=== PATIENT | female | born 1970 | race African-American/Black ===

== ENCOUNTER 2020-10-06 08:27 | Emergency (ER) | payer OTHER, SELFPAY ==
--- NOTE | ~2020-10-06 | XR_ITS ---
EXAMINATION: XR chest 1V portable DATE: 10/06/2020 08:58 INDICATION: Chest pain. TECHNIQUE: A single frontal view of the chest was obtained. COMPARISON: None. FINDINGS: A calcified right lung nodule and calcified mediastinal lymph nodes are consistent with old granulomatous disease. No pleural effusion or pneumothorax. The heart size is normal. Surgical clips in the right upper quadrant are likely from cholecystectomy. IMPRESSION: 1. No acute cardiopulmonary disease. Reviewed, dictated and finalized at location A. LOADER
[2020-10-06 08:40] VITALS: BP 140/99; PULSE 90; RESP 18; TEMP 36.6; O2SAT 100
--- NOTE | 2020-10-06 08:41 | ECG_ITS ---
Measurements Intervals Lenore Rate: 83 P: 85 MO: 151 QRS: 77 QRSD: 76 T: 77 QT: 343 QTc: 405 Interpretive Statements SINUS RHYTHM POSSIBLE RIGHT ATRIAL ENLARGEMENT DELAYED PRECORDIAL R/S TRANSITION VOLTAGE CRITERIA FOR LVH BORDERLINE ECG Electronically Signed On 10-06-2020 11:54:48 CUSTOMS ENTRY WRITER by Will Noble D.O.
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
== END 2020-10-06 09:49 | disposition home or self-care (01) ==
PROVIDERS: Emergency Provider Family Medicine; PCP Internal Medicine
DX: R07.89 Other chest pain (principal); L84 Corns and callosities; R94.31 Abnormal electrocardiogram [ECG] [EKG]
CPT/HCPCS: 71045; 93005; 99283

== ENCOUNTER 2020-10-11 10:31 | Outpatient (CLI) | payer OTHER, SELFPAY ==
--- NOTE | 2020-10-11 12:00 | NEURO_ITS ---
Impression: # Complains of numbness and generalized weakness. # Normal nerve conduction study. # Normal needle/EMG exam without evidence of any neurogenic changes or myotonia. # Clinical correlation recommended. Nerve Conduction Studies Anti Sensory Summary Table Stim Site NR Peak (ms) P-T Amp (?V) Site1 Site2 Delta-P (ms) Dist (cm) Dwight (m/s) Left Median Anti Sensory (2-3nd Digit) Wrist 3.5 63.3 Wrist 2-3nd Digit 3.5 14.0 40 Wrist 3.7 65.1 Wrist 2-3nd Digit 3.5 14.0 40 Right Median Anti Sensory (2-3nd Digit) Wrist 3.0 46.4 Wrist 2-3nd Digit 3.0 14.0 47 Wrist 3.3 69.6 Wrist 2-3nd Digit 3.0 14.0 47 Left Radial Anti Sensory (Base 1st Digit) Wrist 2.5 11.6 Wrist Base 1st Digit 2.5 0.0 Right Radial Anti Sensory (Base 1st Digit) Wrist 2.4 52.8 Wrist Base 1st Digit 2.4 0.0 Left Sup Fibular Anti Sensory (Ant Lat Mall) 14 cm 3.3 10.2 14 cm Ant Lat Mall 3.3 16.0 48 Right Sup Fibular Anti Sensory (Ant Lat Mall) 14 cm 2.8 18.2 14 cm Ant Lat Mall 2.8 16.0 57 Left Sural Anti Sensory (Lat Mall) Calf 3.1 42.3 Calf Lat Mall 3.1 16.0 52 Right Sural Anti Sensory (Lat Mall) Calf 3.7 28.6 Calf Lat Mall 3.7 16.0 43 Left Ulnar Anti Sensory (5th Digit) Wrist 3.0 66.3 Wrist 5th Digit 3.0 14.0 47 Right Ulnar Anti Sensory (5th Digit) Wrist 2.7 59.0 Wrist 5th Digit 2.7 14.0 52 Motor Summary Table Stim Site NR Onset (ms) O-P Amp (mV) Site1 Site2 Delta-0 (ms) Dist (cm) Dwight (m/s) Left Median Motor (Abd Poll Brev) Wrist 3.0 10.7 Elbow Wrist 4.8 27.0 56 Elbow 7.8 11.0 Right Median Motor (Abd Poll Brev) Wrist 2.6 12.5 Elbow Wrist 4.7 27.0 57 Elbow 7.3 6.4 Left Peroneal Motor (Vastus Med) Ankle 4.1 4.9 Popit Ankle 8.1 36.0 44 Popit 12.2 4.2 Right Peroneal Motor (Vastus Med) Ankle 4.4 2.6 Popit Ankle 6.5 32.0 49 Popit 10.9 2.6 Left Tibial Motor (Abd Medina Brev) Ankle 4.8 7.1 Knee Ankle 8.0 40.0 50 Knee 12.8 5.0 Right Tibial Motor (Abd Medina Brev) Ankle 4.4 6.7 Knee Ankle 7.6 37.0 49 Knee 12.0 5.9 Left Ulnar Motor (Abd Dig Minimi) Wrist 2.7 6.6 A Elbow Wrist 5.0 28.0 56 A Elbow 7.7 7.0 Right Ulnar Motor (Abd Dig Minimi) Wrist 3.2 6.9 A Elbow Wrist 4.6 27.0 59 A Elbow 7.8 6.6 F Wave Studies NR F-Lat (ms) L-R F-Lat (ms) Left Median (Mrkrs) (Abd Poll Brev) 27.45 0.23 Right Median (Mrkrs) (Abd Poll Brev) 27.68 0.23 Left Peroneal (Mrkrs) (EDB) 46.28 0.23 Right Peroneal (Mrkrs) (EDB) 46.05 0.23 Left Tibial (Mrkrs) (Abd Hallucis) 46.57 0.00 Right Tibial (Mrkrs) (Abd Hallucis) 46.57 0.00 Left Ulnar (Mrkrs) (Abd Dig Min) 26.09 0.76 Right Ulnar (Mrkrs) (Abd Dig Min) 26.85 0.76 EMG Side Muscle Nerve Root Ins Act Fibs Amp Dur Recrt Comment Right 1stDorInt Ulnar C8-T1 Nml Nml Nml Nml Nml Right Ext Indicis Radial (Post Int) C7-8 Nml Nml Nml Nml Nml Right Ext Digitorum Radial (Post Int) C7-8 Nml Nml Nml Nml Nml Right BrachioRad Radial C5-6 Nml Nml Nml Nml Nml Right PronatorTeres Median C6-7 Nml Nml Nml Nml Nml Right Abd Poll Brev Median C8-T1 Nml Nml Nml Nml Nml Right AntTibialis Dp Br Fibular L4-5 Nml Nml Nml Nml Nml Right Gastro
== END 2020-10-11 10:32 | disposition home or self-care (01) ==
PROVIDERS: PCP Internal Medicine; Visit Provider Psychiatry & Neurology Neurology
DX: R20.2 Paresthesia of skin (principal)
CPT/HCPCS: 95886; 95913

== ENCOUNTER 2020-11-16 16:27 | Emergency (ER) | payer OTHER, SELFPAY ==
[2020-11-16 17:00] VITALS: BP 108/92; PULSE 108; RESP 18; TEMP 36.6; O2SAT 99
[2020-11-16 19:15] VITALS: BP 111/78; PULSE 98; RESP 16
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
--- NOTE | 2020-11-16 19:35 | PC.NURSE ---
pt wishes to leave and not wait for blood work. pt states she will come back tomorrow. pt states she is going to go to [facility] and ask for something otc.
--- NOTE | 2020-11-16 19:35 | PC.NURSE ---
After ER Physician felicity pt reports she wants to leave. AMA form signed by pt with charge nurse Marli.
== END 2020-11-16 19:32 | disposition left against medical advice (07) ==
PROVIDERS: Emergency Provider Emergency Medicine; PCP Internal Medicine
DX: R10.11 Right upper quadrant pain (principal); Z85.038 Personal history of other malignant neoplasm of large intestine
CPT/HCPCS: 99281

== ENCOUNTER 2023-11-16 12:18 | Outpatient (CLI) | payer OTHER, SELFPAY ==
[2023-11-16 13:24] LABS: CRP < 0.5 mg/dL (<1.0)
[2023-11-16 14:39] LABS: Free T4 Free Thyroxine 0.82 ng/mL (0.78-2.19)
[2023-11-18 06:28] LABS: Triiodothyronine T3 Free 2.8 pg/mL (2.3-4.2)
[2023-11-19 16:19] LABS: Red Blood Cell Folate 397 ng/mL RBC (>280)
[2023-11-20 17:44] LABS: Thyroid Peroxidase Antibodies 4 IU/mL (<9)
[2023-11-21 20:49] LABS: Anti Cardio Antibody IgM <2.0 MPL-U/mL; Anti Cardiolipin Antibody IgA <2.0 APL-U/mL; Anti Cardiolipin Antibody IgG <2.0 GPL-U/mL
[2023-11-26 00:23] LABS: RF IgA <5 U
== END 2023-11-16 12:19 | disposition home or self-care (01) ==
LOC: ANHLAB 12:20
PROVIDERS: Visit Provider Psychiatry & Neurology Neurology
DX: M54.50 Low back pain, unspecified (principal); M13.0 Polyarthritis, unspecified
CPT/HCPCS: 36415; 82607; 82747; 84439; 84443; 84481; 86038; 86140

== ENCOUNTER 2025-01-19 11:28 | Outpatient (CLI) | payer OTHER, SELFPAY ==
--- NOTE | ~2025-01-19 | XR_ITS ---
EXAM/ PROCEDURE: XR lumbar spine min 4V - 01/19/2025 11:45 CDT HISTORY: 54 years old Female with M54.5 - Low back pain WORSENING X 6 MONTHS COMPARISON: None available TECHNIQUE: 5 view(s) FINDINGS/ IMPRESSION: There are no fractures or dislocations.Multilevel degenerative changes are seen. Atherosclerotic ulce rations are seen. Cholecystectomy clips are seen. Reviewed, dictated and finalized at location A.
== END 2025-01-19 11:29 | disposition home or self-care (01) ==
PROVIDERS: Visit Provider Psychiatry & Neurology Neurology
DX: G62.9 Polyneuropathy, unspecified (principal); M54.50 Low back pain, unspecified; Z90.49 Acquired absence of other specified parts of digestive tract; M89.9 Disorder of bone, unspecified
CPT/HCPCS: 72110

== ENCOUNTER 2025-04-27 09:29 | Outpatient (CLI) | payer OTHER, SELFPAY ==
--- OUTSIDE RECORDS SUMMARY | 2025-04-27 09:59 | XMS_ITS | Clinical Summary ---
Author Organization [facility] Address [address] [place] [address] Care Team Providers Care Nickel Operator Name Role Phone Piotr Gonzalez MD Unavailable [phone] Glenn Grayson MD Unavailable [phone] Ami Yost NP Primary Care Provider + Allergies Active Allergy Reactions Criticality Noted Date Comments Penicillins Unknown 07/23/2020 Medications albuterol HFA (PROVENTIL HFA,VENTOLIN HFA,PROAIR HFA) 90 mcg/actuation inhaler 1 Active ARIPiprazole (ABILIFY) 2 mg tablet 1 Active busPIRone (BUSPAR) 10 mg tablet TAKE 1 TABLET BY MOUTH FOUR TIMES A DAY 1 Active citalopram (CeleXA) 10 mg tablet Take 10 mg by mouth daily 1 Active ergocalciferol (VITAMIN D) 50,000 unit capsule TAKE 1 CAPSULE BY MOUTH ONCE PER WEEK DIRECTED FOR 28 DAYS 1 Active HYDROcodone-kamlesh taminophen (NORCO) 5-325 mg per tablet 1 Active ipratropium-alb uteroL (DUO-NEB) 0.5-2.5 mg/3 mL nebulizer solution INHALE 1 VIAL PER NEBULIZER 4 TIMES A DAY FOR 30 DAYS. 1 Active ibuprofen (ADVIL,MOTRIN) 600 mg tablet Take 600 mg by mouth 3 (three) times a day 1 Active OLANZapine (ZyPREXA) 10 mg tablet TAKE 1 TABLET BY MOUTH EVERYDAY AT BEDTIME 1 Active omeprazole (PriLOSEC) 20 mg capsule Take 20 mg by mouth 2 (two) times a day 1 Active Active Problems No known active problems Surgical History Surgery Date Site/Laterality Comments SECTION CHOLECYSTECTOMY Medical History Medical History Date Comments Gout Cancer (HCC) Peptic ulceration Family History Medical History Relation Name Comments Cancer Father Heart disease Mother Relation Name Status Comments Father Mother Social History Tobacco Use Types Packs/Day Years Used Date Smoking Tobacco: Every Day Personal Safety Answer Date Recorded Getting School Help Needed Not on file 08/20 Comments Unknown Sex and Gender Information Value Date Recorded Sex Assigned at Not on file Legal Sex Female 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 [employer] Gender Identity Not on file Sexual Orientation Not on file Occupation Industry Job Start Date Job End Date DISABLED Not on file Not on file Not on file Obstetrics History Last Filed Vital Signs Vital Sign Reading Time Taken Comments Blood Pressure 123/88 08/21/2016 10:42 AM PROGRAM COORDINATOR FOR [employer] Pulse 90 11/23/2020 1:39 PM CDT Temperature 36.6 C (97.8 F) 08/21/2016 10:42 AM PROGRAM COORDINATOR FOR [employer] Respiratory Rate - - Oxygen Saturation 98% 08/21/2016 10:42 AM PROGRAM COORDINATOR FOR [employer] Inhaled Oxygen Concentration - - Weight 36.3 kg (80 lb) 12/07/2020 10:55 AM CDT Height 160 cm (5' 3) 12/07/2020 10:55 AM CDT Body Mass Index 14.17 12/07/2020 10:55 AM CDT Plan of Treatment Health Maintenance Due Date Last Done Comments Breast Cancer Screening-Mammogram 1969 Cervical Cancer Screening 1969 Colon Cancer Screening-Colonoscopy 1969 Depression Screening 1969 Hepatitis C Screening 1969 DTaP/Tdap/Td Vaccine (1 - Tdap) 1980 Hepatitis B Screening 1987 Regular Well Visit/Exam 18-64 1987 Pneumococcal vaccine <65 (1 of 2 - PCV) 1988 Zoster Vaccine (1 of 2) 2019 Influenza Vaccine (#1) 2025 11/23/2015 Insurance Care Teams Nickel Operator Relationship Specialty Start Date End Date Ami Yost NP [address] [place] [id number] PCP - General Family Practice 05/08/22 Piotr Gonzalez MD 10/29/20 Glenn Grayson MD [address] [place] [id number] Referring Physician Neurology 12/05/20
--- OUTSIDE RECORDS SUMMARY | 2025-04-27 09:59 | XMS_ITS | Encounter Summary ---
Author Organization [facility] Address [address] [place] [address] Care Team Providers Care Manager Vehicle Name Role Phone Piotr Gonzalez MD Unavailable [phone] Piotr Gonzalez MD Primary Care Provider [phone] Glenn Grayson MD Unavailable [phone] Ami Yost NP Primary Care Provider + Encounter Details Date Type Department Care Team (Late st Contact Info) Description 08/08/2021 Telephone [facility] [address] [facility] [address] [place] [address] Sherif Lo MD PhD [address] [facility] [address] [facility] [address] [place] [address] Social History Tobacco Use Types Packs/Day Years Used Date Smoking Tobacco: Every Day Comments Unknown Sex and Gender Information Value Date Recorded Sex Assigned at Not on file 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 Gender Identity Not on file Sexual Orientation Not on file Occupation Industry Job Start Date Job End Date DISABLED Not on file Not on file Not on file documented as of this encounter Plan of Treatment Not on file documented as of this encounter Visit Diagnoses Not on filedocumented in this encounter Care Teams Manager Vehicle Relationship Specialty Start Date End Date Piotr Gonzalez MD PCP - General 11/12/20 05/07/22 Ami Yost NP [address] [place] [address] [id number] PCP - General Family Practice 05/08/22 Piotr Gonzalez MD 10/29/20 Glenn Grayson MD [address] [place] [address] [id number] Referring Physician Neurology 12/05/20 documented as of this encounter
--- OUTSIDE RECORDS SUMMARY | 2025-04-27 09:59 | XMS_ITS | Clinical Summary ---
Author Organization [facility] Address [address] [facility] [place] [address] Care Team Providers Care Exercise Teacher Name Role Phone Olinda Urrutia DO Primary Care Provi nubia Source Comments [facility],non-owned Affiliates and Associated Physician Practices is amultiple site organization consisting of ambulatory clinics and hospital sitesin [place], [place], [place] and [place]. This disclosure is being madepursuant to the Care Everywhere program and may not contain all information available regarding this patient. Last updated 18.[facility] Allergies Active Allergy Reactions Criticality Noted Date Comments Penicillins Unknown 07/23/2020 Medications * Be aware that medications may not be up to date on this document. Alwaysverify current medications with the patient. albuterol HFA (PROVENTIL;BERNICE MELODY;PROAIR) 108 (90 Base) MCG/ACT inhaler Inhale 2 puffs by mouth every 6 hours as needed Active HYDROcodone-acet aminophen (NORCO) 5-325 MG tablet Take 1 tablet by mouth every 6 hours as needed for Pain Active busPIRone (BUSPAR) 10 MG tablet Take 10 mg by mouth 3 times daily Active Active Problems Problem Noted Date Diagnosed Date Paranoid delusion 07/23/2020 Schizophrenia COPD (chronic obstructive pulmonary disease) Social History Tobacco Use Types Packs/Day Years Used Date Smoking Tobacco: Never Assessed Comments Unknown Sex and Gender Information Value Date Recorded Sex Assigned at Not on file Legal Sex Female 6:05 AM MODELER Gender Identity Not on file Sexual Orientation Not on file Last Filed Vital Signs Vital Sign Reading Time Taken Comments Blood Pressure 138/90 07/24/2020 3:15 AM MODELER Pulse 82 07/24/2020 3:15 AM MODELER Temperature 36.7 C (98 F) 07/24/2020 3:15 AM MODELER Respiratory Rate 20 07/23/2020 3:38 PM MODELER Oxygen Saturation 98% 07/24/2020 3:15 AM MODELER Inhaled Oxygen Concentration - - Weight 43.1 kg (95 lb) 07/23/2020 8:52 AM MODELER Height 157.5 cm (5' 2) 07/23/2020 8:52 AM MODELER Body Mass Index 17.38 07/23/2020 8:52 AM MODELER Plan of Treatment Health Maintenance Due Date Last Done Comments COLOGUARD (AGES 45-75) - COL ON CA SCREENING 1969 COLON MONITORING 1969 COLONOSCOPY - COLON CA SCREENING 1969 CT COLONOGRAPHY - COLON CA SCREENING 1969 Colorectal Cancer Screening 1969 FIT - COLON CA SCREENING 1969 FLEX SIG - COLON CA SCREENING 1969 LIPID TESTING 1969 MAMMOGRAM 1969 HIV SCREENING 1984 HEPATITIS C SCREENING 06/24/1987 DTAP/TDAP/TD VACCINES (1 - Tdap) 1988 HEPATITIS B VACCINE (1 of 3 - 19+ 3-dose series) 1988 PNEUMOCOCCAL VACCINE 50+ (1 of 2 - PCV) 1988 PAP SMEAR 1990 ZOSTER VACCINE (1 of 2) 2019 DEPRESSION SCREENING 07/27/2024 COVID-19 VACCINE (1 - 2023-2 5 season) 2025 INFLUENZA VACCINE (#1) 2025 HIB VACCINE Aged Out No longer eligi ble based on patient's age to complete this topic HPV VACCINE Aged Out No longer eligi ble based on patient's age to complete this topic MENINGOCOCCAL (Group B) VACC INE SHARED DECISION-MAKING Aged Out No longer eligibl e based on patient's age to complete this topic MENINGOCOCCAL GROUPS A/C/Y/W VACCINE Aged Out No longer eligible b ased on patient's age to complete this topic Insurance [facility] Care Teams Exercise Teacher Relationship Specialty Start Date End Date Olinda Urrutia DO [facility] [address] [place] [id number] PCP - General 07/24/20
--- OUTSIDE RECORDS SUMMARY | 2025-04-27 09:59 | XMS_ITS | Clinical Summary ---
Author Organization [facility] Address [address] [place] [address] Phone Care Team Providers Care Boring Mill Set Up Operator Vertical Name Role Phone Unavailable Primary Care Provider Unavailabl e Social History Tobacco Use Types Packs/Day Years Used Date Smoking Tobacco: Never Assessed Comments Unknown Sex and Gender Information Value Date Recorded Sex Assigned at Not on file Legal Sex Female 3:12 PM BINGO CHECKER Gender Identity Not on file Sexual Orientation Not on file Plan of Treatment Health Maintenance Due Date Last Done Comments Hepatitis C Virus (HCV) Screening 1969 TdaP Immunization 1969 Hepatitis B Immunization (1 of 3 - 19+ 3-dose series) 1988 Pap Smear 1990 Cervical Cancer Screening (CCS) 1999 HPV/Cotest 1999 Cologuard 2014 Colonoscopy 2014 Colorectal Cancer Screening 2014 Immunochemical Fecal Occult Blood 2014 Pneumococcal Immunization (5 0+ years) (1 of 1 - PCV) 2019 Zoster Immunization (1 of 2) 2019 Influenza Immunization (#1) 2025 SARS-COV-2 Immunization ( season) 2025 Respiratory Syncytial Virus (RSV) Immunization (Adult) (1 - 1-dose 75+ series) 2044 Human Papillomavirus (HPV) Immunization Aged Out No longer eligible b ased on patient's age to complete this topic Meningococcal Immunization (ACWY) Aged Out No longer eligible based on patient's age to complete this topic Rotavirus Immunization Aged Out No lo nger eligible based on patient's age to complete this topic
--- NOTE | 2025-04-27 11:30 | NEURO_ITS ---
Clinical note: Patient 54-year-old with complaints of paresthesias in both lower limbs and lower back pain. No history of diabetes mellitus. EMG and nerve can study results are shown below. A brief neurological examination no focal muscle wasting or fasciculations or weakness were seen in the lower limb muscles. Summary of findings: 1. Left and right peroneal motor distal latencies and amplitude and conduction velocity were within normal limits. 2. Left and right tibial motor distal and slight amplitude and conduction velocities were within normal limits. 3. Left and right medial plantar and sural sensory distal latencies and amplitudes were within normal limits. 4. Left and right H reflex latencies were within normal limits however slightly prolonged on the left than right side. Amplitude also decreased on the left than right side. 5. EMG examination performed wears various muscles examined in both lower limbs and related paraspinal muscles. No denervation changes were seen. Motor unit amplitude and conduction velocity were also within normal limits. No myopathic patterns were seen. Impression: EMG nerve can study of both lower limbs are considered within acceptable normal limits. Negative examination would not rule out possibility of lumbosacral radiculopathy or small fiber neuropathy and if clinically relevant a follow-up study and radiologic correlation may be helpful. Christel Cai MD, FAAN, FAANEM Neurology and electrodiagnostic Medicine Nerve Conduction Studies Motor Nerve Results ? Latency Amplitude F-Lat Segment Distance CV Comment Site (ms) (mV) (ms) (cm) (m/s) Left Peroneal (EDB) Motor Ankle 4.0 7.0 Bel Fib Head 9.6 7.2 Bel Fib Head-Ankle 250 45 Pop Fossa 11.4 7.0 Pop Fossa-Bel Fib Head 80 44 Right Peroneal (EDB) Motor Ankle 4.0 6.6 Bel Fib Head 9.3 6.2 Bel Fib Head-Ankle 240 45 Pop Fossa 10.9 6.5 Pop Fossa-Bel Fib Head 70 44 Left Tibial (AHB) Motor Ankle 5.1 12.6 Knee 12.9 9.7 Knee-Ankle 385 49 Right Tibial (AHB) Motor Ankle 4.7 9.9 Knee 13.1 8.4 Knee-Ankle 350 42 Sensory Nerve Results ? Latency (Peak) Amplitude (P-P) Segment Distance CV Comment Site (ms) (?V) (cm) (m/s) Left Medial Plantar (Ortho) Sensory Great Toe-Med Mall 3.4 16 Great Toe-Med Mall 105 31 Right Medial Plantar (Ortho) Sensory Great Toe-Med Mall 2.6 45 Great Toe-Med Mall 95 37 Left Sural Sensory Calf-Lat Mall 3.6 34 Calf-Lat Mall 120 33 Right Sural Sensory Calf-Lat Mall 3.2 38 Calf-Lat Mall 120 38 H-Reflex Results ? M-Lat H Lat H Peak-Peak Amp M Peak-Peak Amp H-M Lat Site (ms) (ms) mV mV (ms) Left Tibial H-Reflex Pop Fossa 6.7 30.2 2.8 10.8 23.5 Right Tibial H-Reflex Pop Fossa 5.7 28.2 7.0 12.5 22.5 Electromyography ?Side Muscle Nerve Ins Act Fibs Psw Amp Dur Recrt Comment Right BicepsFemS Sciatic Nml Nml Nml Nml Nml Nml Right Semimembranosus Sciatic Nml Nml Nml Nml Nml Nml Right AntTibialis Dp Br Fibular Nml Nml Nml Nml Nml Nml Right Gastroc Tibial Nml Nml Nml Nml Nml Nml Right VastusMed Femoral Nml Nml Nml Nml Nml Nml Right RectFemoris Femoral Nml Nml Nml Nml Nml Nml Right GluteusMax InfGluteal Nml Nml Nml Nml Nml Nml Right TensorFascLat SupGluteal Nml Nml Nml Nml Nml Nml Left BicepsFemS Sciatic Nml Nml Nml Nml Nml Nml Left Semimembranosus Sciatic Nml Nml Nml Nml Nml Nml Left AntTibialis Dp Br Fibular Nml Nml Nml Nml Nml Nml Left Gastroc Tibial Nml Nml Nml Nml Nml Nml Left VastusMed Femoral Nml Nml Nml Nml Nml Nml Left RectFemoris Femoral Nml Nml Nml Nml Nml Nml Left GluteusMax InfGluteal Nml Nml Nml Nml Nml Nml Left TensorFascLat SupGluteal Nml Nml Nml Nml Nml Nml Left L4 Parasp Rami Nml Nml Nml Nml Nml Nml Left L5 Parasp Rami Nml Nml Nml Nml Nml Nml Right L4 Parasp Rami Nml Nml Nml Nml Nml Nml Right L5 Parasp Rami Nml Nml Nml Nml Nml Nml
== END 2025-04-27 09:30 | disposition home or self-care (01) ==
LOC: ANHNEURO 09:31
PROVIDERS: Visit Provider Psychiatry & Neurology Neurology
DX: R20.2 Paresthesia of skin (principal)
CPT/HCPCS: 95886; 95910